=== PATIENT | male | born 1960 | race Caucasian/White ===

== ENCOUNTER 2023-05-06 18:22 | Inpatient (IN) | payer BC, OTHER ==
[~2023-05-06] VITALS: Ht 177.8 cm; Wt 79.4 kg
[2023-05-06 18:24] VITALS: BP 238/145; PULSE 84; RESP 14; TEMP 97.2; O2SAT 98
[2023-05-06 19:14] LABS: BASOPHILS # (AUTO) 0.1 K/uL (0.00-0.22); BASOPHILS % (AUTO) 1.1 % (0.0-2.0); EOSINOPHILS # (AUTO) 0.1 K/uL (0-0.4); EOSINOPHILS % (AUTO) 2.3 % (0.0-4.0); HEMATOCRIT 40.1 % (36-52); HEMOGLOBIN 13.9 g/dL (12.0-18.0); LYMPHOCYTES # (AUTO) 1.3 K/uL (2.0-11.5); LYMPHOCYTES % (AUTO) 19.9 % (20.5-51.1); MEAN CORPUSCULAR HEMOGLOBIN 30 pg (27-31); MEAN CORPUSCULAR HGB CONC 35 g/dL (33-37); MEAN CORPUSCULAR VOLUME 85.7 fL (80-94); MONOCYTES # (AUTO) 0.5 K/uL (0.8-1.0); MONOCYTES % (AUTO) 8.4 % (1.7-9.3); NEUTROPHILS # (AUTO) 4.3 K/uL (1.8-7.7); NEUTROPHILS % (AUTO) 68.3 % (42.2-75.2); PLATELET COUNT (AUTO) 345 K/uL (140-450); RED BLOOD CELL COUNT(AUTO) 4.68 MIL/uL (4.20-6.10); RED CELL DISTRIBUTION WIDTH 13.1 % (11.6-13.7); WHITE BLOOD COUNT (AUTO) 6.3 K/uL (4.8-10.8)
[2023-05-06 19:22] LABS: ANION GAP 11.4 (8-16); CALCIUM 8.8 mg/dL (8.5-10.1); CARBON DIOXIDE 28.8 mmol/L (21-32); POTASSIUM 3.2 mmol/L (3.5-5.1)
[2023-05-06 19:27] LABS: INR 0.94 (0.8-1.2); PROTHROMBIN TIME 9.9 secs (10.8-13.4)
[2023-05-06 19:30] LABS: APPEARANCE,URINE CLEAR (CLEAR); BILIRUBIN,URINE NEGATIVE (NEGATIVE); BLOOD, URINE NEGATIVE (NEGATIVE); COLOR,URINE YELLOW (YELLOW); LEUKOCYTE ESTERASE ,URINE NEGATIVE (NEGATIVE); NITRITE, URINE NEGATIVE (NEGATIVE); PROTEIN,URINE NEGATIVE (NEGATIVE); UGLUCOSE NEGATIVE (NEGATIVE); UROBILINOGEN,URINE 0.2 EU/dL (0.2 - 1)
[2023-05-06 19:31] LABS: ALANINE AMINOTRANSFERASE 16 U/L (12-78); ALBUMIN 3.7 g/dL (3.4-5.0); ALKALINE PHOSPHATASE 128 U/L (50-136); ASPARTATE AMINOTRANSFERASE 21 U/L (15-37); BILIRUBIN,DIRECT 0.1 mg/dL (0.0-0.3); TOTAL BILIRUBIN 0.5 mg/dL (0.0-1.0); TOTAL PROTEIN, SERUM 7.1 g/dL (6.4-8.2)
[2023-05-06] MEDS: ONDANSETRON 4 MG/2 ML VIAL IVP ONE (19:42)
[2023-05-06] MEDS: MORPHINE SULFATE 4 MG/ML SYR IVP ONE (19:52)
[2023-05-06 19:53] LABS: AMPHETAMINE, URINE POSITIVE ng/ml (NEG <=1000); BARBITURATE, URINE NEGATIVE ng/ml (NEG <=200); BENZODIAZEPINE, URINE NEGATIVE ng/mL (NEG <=200); CANNABINOID, URINE NEGATIVE ng/mL (NEG <=50); COCAINE, URINE NEGATIVE ng/mL (NEG <=300); OPIATE, URINE NEGATIVE ng/mL (NEG <=2000); PHENCYCLIDINE SCREEN,URINE NEGATIVE ng/mL (NEG <=25)
[2023-05-06] MEDS: NACL 0.9% 1,000 ML IV ONE (19:53)
[2023-05-06] MEDS: POTASSIUM CHLORIDE 20% 40 MEQ/15 ML UDC PO ONE (20:52)
[2023-05-06] MEDS: ASPIRIN 325 MG TAB PO ONE (20:57)
[2023-05-06] MEDS ORDERED: MAG SULF 2000 MG/WATER PREMIX 50 ML IV PRN (21:25)
[2023-05-06] MEDS ORDERED: ONDANSETRON 4 MG/2 ML VIAL IVP PRN (21:25)
[2023-05-06] MEDS ORDERED: MAGNESIUM OXIDE 400 MG TAB PO PRN (21:25)
[2023-05-06] MEDS ORDERED: KCL 20 MEQ IN 100 mL PREMIX 200 ML IV PRN (21:25)
[2023-05-06] MEDS ORDERED: MEMA5TAB15 PO (22:12)
[2023-05-06] MEDS ORDERED: TAMS0.4C96 PO (22:12)
[2023-05-06] MEDS ORDERED: LAM25 PO (22:12)
[2023-05-06 22:36] LABS: ALCOHOL, BLOOD < 3 mg/dL (<10); SALICYLATE < 2.8 mg/dL (2.8-20.0)
[2023-05-06 23:05] VITALS: PULSE 69; RESP 18; O2SAT 97
[2023-05-07] VITALS: BP 143/89; PULSE 69; PULSE 70; RESP 18; TEMP 98.1; O2SAT 97
[2023-05-07 04:00] VITALS: BP 166/107; PULSE 66; PULSE 82; RESP 20; TEMP 97.5; O2SAT 98
[2023-05-07] MEDS: hydrALAZINE 20 MG/ML VIAL IVP PRN (04:19)
[2023-05-07 06:58] LABS: BASOPHILS % (AUTO) 0.7 % (0.0-2.0); EOSINOPHILS # (AUTO) 0.2 K/uL (0-0.4); EOSINOPHILS % (AUTO) 4.3 % (0.0-4.0); HEMATOCRIT 39.8 % (36-52); HEMOGLOBIN 13.8 g/dL (12.0-18.0); LYMPHOCYTES # (AUTO) 1.5 K/uL (2.0-11.5); LYMPHOCYTES % (AUTO) 26.4 % (20.5-51.1); MEAN CORPUSCULAR HEMOGLOBIN 30 pg (27-31); MEAN CORPUSCULAR HGB CONC 35 g/dL (33-37); MEAN CORPUSCULAR VOLUME 85.3 fL (80-94); MONOCYTES # (AUTO) 0.5 K/uL (0.8-1.0); MONOCYTES % (AUTO) 8.9 % (1.7-9.3); NEUTROPHILS # (AUTO) 3.4 K/uL (1.8-7.7); NEUTROPHILS % (AUTO) 59.7 % (42.2-75.2); PLATELET COUNT (AUTO) 331 K/uL (140-450); RED BLOOD CELL COUNT(AUTO) 4.67 MIL/uL (4.20-6.10); RED CELL DISTRIBUTION WIDTH 13.1 % (11.6-13.7); WHITE BLOOD COUNT (AUTO) 5.7 K/uL (4.8-10.8)
[2023-05-07 07:05] LABS: PHOSPHORUS 3.9 mg/dL (2.5-4.9)
[2023-05-07 07:06] LABS: ANION GAP 12.8 (8-16); CALCIUM 8.6 mg/dL (8.5-10.1); CARBON DIOXIDE 25.6 mmol/L (21-32); CREATININE 0.8 mg/dL (0.6-1.3); POTASSIUM 3.4 mmol/L (3.5-5.1)
[2023-05-07 08:00] VITALS: BP 152/98; PULSE 81; RESP 18; TEMP 98.1; O2SAT 98
[2023-05-07] MEDS: ATORVASTATIN 20 MG TAB PO SCH (08:55)
[2023-05-07] MEDS: ASPIRIN 81 MG TAB.CHEW PO SCH (08:56)
[2023-05-07] MEDS: amLODIPine 5 MG TAB PO SCH (08:56)
[2023-05-07] MEDS: POTASSIUM CHLORIDE 10 MEQ TABER PO PRN (08:58)
[2023-05-07] MEDS: ACETAMINOPHEN 325 MG TAB PO PRN (08:59)
[2023-05-07 12:00] VITALS: BP 131/92; PULSE 74; RESP 18; TEMP 97.8; O2SAT 98
[2023-05-07 16:00] VITALS: BP 138/93; PULSE 65; RESP 18; TEMP 98.2; O2SAT 100
[2023-05-07] MEDS ORDERED: traMADol 50 MG TAB PO PRN (17:35)
[2023-05-07] MEDS: HYDROcodone/APAP 5/325 MG 1 TAB TAB PO PRN (18:42)
[2023-05-07 20:00] VITALS: BP 127/80; PULSE 60; PULSE 69; PULSE 70; RESP 16; RESP 18; TEMP 98.8; O2SAT 100; O2SAT 98
[2023-05-08] VITALS: BP 124/66; PULSE 70; RESP 18; TEMP 98.2; O2SAT 98
[2023-05-08 04:00] VITALS: BP 148/88; PULSE 60; RESP 16; TEMP 98.6; O2SAT 98
[2023-05-08 07:17] LABS: BASOPHILS % (AUTO) 0.8 % (0.0-2.0); EOSINOPHILS # (AUTO) 0.2 K/uL (0-0.4); EOSINOPHILS % (AUTO) 4.3 % (0.0-4.0); HEMATOCRIT 41.7 % (36-52); HEMOGLOBIN 14.5 g/dL (12.0-18.0); LYMPHOCYTES # (AUTO) 1.3 K/uL (2.0-11.5); LYMPHOCYTES % (AUTO) 23.7 % (20.5-51.1); MEAN CORPUSCULAR HEMOGLOBIN 30 pg (27-31); MEAN CORPUSCULAR HGB CONC 35 g/dL (33-37); MEAN CORPUSCULAR VOLUME 85.2 fL (80-94); MONOCYTES # (AUTO) 0.5 K/uL (0.8-1.0); MONOCYTES % (AUTO) 9.4 % (1.7-9.3); NEUTROPHILS # (AUTO) 3.4 K/uL (1.8-7.7); NEUTROPHILS % (AUTO) 61.8 % (42.2-75.2); PLATELET COUNT (AUTO) 343 K/uL (140-450); RED CELL DISTRIBUTION WIDTH 12.7 % (11.6-13.7); WHITE BLOOD COUNT (AUTO) 5.5 K/uL (4.8-10.8)
[2023-05-08 07:48] LABS: ANION GAP 12.3 (8-16); CALCIUM 8.8 mg/dL (8.5-10.1); CARBON DIOXIDE 26.5 mmol/L (21-32); CREATININE 0.8 mg/dL (0.6-1.3); POTASSIUM 3.8 mmol/L (3.5-5.1)
[2023-05-08 08:00] VITALS: BP 151/99; PULSE 60; PULSE 65; RESP 16; RESP 20; TEMP 98.3; O2SAT 98
[2023-05-08 16:00] VITALS: BP 132/85; PULSE 67; RESP 20; TEMP 98.3; O2SAT 98
[2023-05-08 20:00] VITALS: PULSE 75; RESP 18; O2SAT 98
[2023-05-09 04:00] VITALS: BP 133/82; PULSE 75; RESP 18; TEMP 97.9; O2SAT 100
[2023-05-09 06:52] LABS: BASOPHILS # (AUTO) 0.1 K/uL (0.00-0.22); BASOPHILS % (AUTO) 0.9 % (0.0-2.0); EOSINOPHILS # (AUTO) 0.2 K/uL (0-0.4); EOSINOPHILS % (AUTO) 4.3 % (0.0-4.0); HEMATOCRIT 41.1 % (36-52); HEMOGLOBIN 14.4 g/dL (12.0-18.0); LYMPHOCYTES # (AUTO) 1.5 K/uL (2.0-11.5); LYMPHOCYTES % (AUTO) 26.6 % (20.5-51.1); MEAN CORPUSCULAR HEMOGLOBIN 30 pg (27-31); MEAN CORPUSCULAR HGB CONC 35 g/dL (33-37); MEAN CORPUSCULAR VOLUME 85.4 fL (80-94); MONOCYTES # (AUTO) 0.6 K/uL (0.8-1.0); MONOCYTES % (AUTO) 10.4 % (1.7-9.3); NEUTROPHILS # (AUTO) 3.2 K/uL (1.8-7.7); NEUTROPHILS % (AUTO) 57.8 % (42.2-75.2); PLATELET COUNT (AUTO) 325 K/uL (140-450); RED BLOOD CELL COUNT(AUTO) 4.82 MIL/uL (4.20-6.10); RED CELL DISTRIBUTION WIDTH 13.1 % (11.6-13.7); WHITE BLOOD COUNT (AUTO) 5.6 K/uL (4.8-10.8)
[2023-05-09 07:49] LABS: ANION GAP 11.3 (8-16); CALCIUM 8.7 mg/dL (8.5-10.1); CARBON DIOXIDE 28.6 mmol/L (21-32); POTASSIUM 3.9 mmol/L (3.5-5.1)
[2023-05-09 08:00] VITALS: BP 146/92; PULSE 54; RESP 18; TEMP 97; O2SAT 98
[2023-05-09 08:02] LABS: MAGNESIUM 2.1 mg/dL (1.8-2.4); PHOSPHORUS 4.7 mg/dL (2.5-4.9)
[2023-05-09] MEDS: lamoTRIgine 25 MG TAB PO SCH (08:28)
[2023-05-09] MEDS: SERTRALINE 50 MG TAB PO SCH (08:29)
[2023-05-09 09:21] VITALS: PULSE 59; RESP 18; O2SAT 98
[2023-05-09 16:00] VITALS: BP 138/75; PULSE 77; RESP 18; TEMP 97.9; O2SAT 98
[2023-05-09 20:00] VITALS: BP 154/91; PULSE 59; PULSE 77; RESP 18; TEMP 98; O2SAT 98; O2SAT 99
[2023-05-10 06:59] LABS: BASOPHILS # (AUTO) 0.1 K/uL (0.00-0.22); BASOPHILS % (AUTO) 0.9 % (0.0-2.0); EOSINOPHILS # (AUTO) 0.2 K/uL (0-0.4); EOSINOPHILS % (AUTO) 3.5 % (0.0-4.0); HEMATOCRIT 42.8 % (36-52); HEMOGLOBIN 14.6 g/dL (12.0-18.0); LYMPHOCYTES # (AUTO) 1.3 K/uL (2.0-11.5); LYMPHOCYTES % (AUTO) 23.9 % (20.5-51.1); MEAN CORPUSCULAR HEMOGLOBIN 29 pg (27-31); MEAN CORPUSCULAR HGB CONC 34 g/dL (33-37); MEAN CORPUSCULAR VOLUME 85.8 fL (80-94); MONOCYTES # (AUTO) 0.5 K/uL (0.8-1.0); MONOCYTES % (AUTO) 8.5 % (1.7-9.3); NEUTROPHILS # (AUTO) 3.4 K/uL (1.8-7.7); NEUTROPHILS % (AUTO) 63.2 % (42.2-75.2); PLATELET COUNT (AUTO) 347 K/uL (140-450); RED BLOOD CELL COUNT(AUTO) 4.99 MIL/uL (4.20-6.10); WHITE BLOOD COUNT (AUTO) 5.4 K/uL (4.8-10.8)
[2023-05-10 07:08] LABS: MAGNESIUM 2.2 mg/dL (1.8-2.4); PHOSPHORUS 4.2 mg/dL (2.5-4.9)
[2023-05-10 07:27] LABS: ANION GAP 11.4 (8-16); CALCIUM 8.9 mg/dL (8.5-10.1); CARBON DIOXIDE 28.8 mmol/L (21-32); CREATININE 0.9 mg/dL (0.6-1.3); POTASSIUM 4.2 mmol/L (3.5-5.1)
[2023-05-10 08:00] VITALS: PULSE 64; RESP 16; O2SAT 98
[2023-05-10 12:00] VITALS: BP 154/91; PULSE 64; RESP 16; TEMP 98; O2SAT 98
[2023-05-10] MEDS: LORazepam 2 MG/ML VIAL IVP PRN (12:52)
[2023-05-10 20:00] VITALS: PULSE 70; RESP 18; O2SAT 95
[2023-05-11] VITALS: BP 137/87; PULSE 70; RESP 18; TEMP 98.3; O2SAT 95
[2023-05-11 06:51] LABS: BASOPHILS # (AUTO) 0.1 K/uL (0.00-0.22); BASOPHILS % (AUTO) 1.2 % (0.0-2.0); EOSINOPHILS # (AUTO) 0.2 K/uL (0-0.4); EOSINOPHILS % (AUTO) 3.3 % (0.0-4.0); HEMATOCRIT 42.6 % (36-52); HEMOGLOBIN 14.7 g/dL (12.0-18.0); LYMPHOCYTES # (AUTO) 1.2 K/uL (2.0-11.5); LYMPHOCYTES % (AUTO) 24.2 % (20.5-51.1); MEAN CORPUSCULAR HEMOGLOBIN 30 pg (27-31); MEAN CORPUSCULAR HGB CONC 35 g/dL (33-37); MEAN CORPUSCULAR VOLUME 85.6 fL (80-94); MONOCYTES # (AUTO) 0.5 K/uL (0.8-1.0); MONOCYTES % (AUTO) 9.8 % (1.7-9.3); NEUTROPHILS # (AUTO) 3.1 K/uL (1.8-7.7); NEUTROPHILS % (AUTO) 61.5 % (42.2-75.2); PLATELET COUNT (AUTO) 338 K/uL (140-450); RED BLOOD CELL COUNT(AUTO) 4.97 MIL/uL (4.20-6.10); WHITE BLOOD COUNT (AUTO) 5.1 K/uL (4.8-10.8)
[2023-05-11 07:26] LABS: CALCIUM 8.9 mg/dL (8.5-10.1); CREATININE 0.9 mg/dL (0.6-1.3)
[2023-05-11 07:38] LABS: MAGNESIUM 2.2 mg/dL (1.8-2.4); PHOSPHORUS 4.3 mg/dL (2.5-4.9)
[2023-05-11 08:00] VITALS: BP 139/65; PULSE 67; PULSE 70; RESP 18; TEMP 97.1; O2SAT 95; O2SAT 96
[2023-05-11 16:00] VITALS: BP 147/85; PULSE 87; RESP 18; TEMP 98.6; O2SAT 96
[2023-05-11 20:00] VITALS: PULSE 70; RESP 18; O2SAT 94
[2023-05-12] VITALS (7 sets, daily range): BP systolic 123–147; BP diastolic 82–94; PULSE 61–87; RESP 17–18; TEMP 98.2–98.6; O2SAT 94–99
[2023-05-12] MEDS: POLYETHYLENE GLYCOL 17 GM/PKT PO SCH (13:45)
[2023-05-13] VITALS: BP 128/92; PULSE 79; RESP 18; TEMP 99.2; O2SAT 97
[2023-05-13 08:00] VITALS: BP 123/86; PULSE 69; RESP 16; TEMP 98.1; O2SAT 98
[2023-05-13 13:18] VITALS: BP 123/86; PULSE 69; RESP 16; TEMP 98.1
[2023-05-13 14:49] VITALS: O2SAT 97
== END 2023-05-13 17:17 | DRG 78 ==
LOC: MED 18:22 → UNDOADMOB 21:30 → INTOOBSV 21:30 → MTU 21:30 → OBSVTOIN 21:30 → MTU 22:16 → OBSVTOIN 05-09 14:45 → MTU 05-09 14:45
PROVIDERS: ADMIT Hospitalist; ATTEND Hospitalist
DX: I67.4 Hypertensive encephalopathy (principal); I16.1 Hypertensive emergency; F31.9 Bipolar disorder, unspecified; R27.0 Ataxia, unspecified; Z79.899 Other long term (current) drug therapy
CPT/HCPCS: 36415; 70450; 71045; 72125; 80048; 80076; 80305; 81003; 83735; 84100; 84484; 85025; 85610; 85730; 86886; 86900; 86901; 87081; 93005; 97110; 97116; 97163-GP; 97530; G0480; G0482; J0360; J1644; J2060; J2270; J2405; Q9967